=== PATIENT | male | born 1995 | race Caucasian/White ===

== ENCOUNTER 2020-11-25 02:40 | Emergency (ER) | payer OTHER ==
[~2020-11-25] VITALS: Ht 177.8 cm; Wt 75.3 kg
--- NOTE | 2020-11-25 02:40 | NUR ---
JAIME NUNEZ TO CHAIR B
[2020-11-25 03:10] VITALS: BP 121/88
[2020-11-25 03:18] VITALS: BP 121/88
--- NOTE | 2020-11-25 03:18 | NUR ---
PATIENT BIB [place] [employer]. PATIENT EXAMINED BY DR. MCKINNON. PATIENT MEDICALLY CLEARED AND RELEASED IN CUSTODY IN STABLE CONDITION. ORIGINAL PRE-BOOK FORM GIVEN TO OFFICER Yuriy RANGEL [id number]
== END 2020-11-25 03:18 ==
LOC: MED 02:40
DX: Z02.89 Encounter for other administrative examinations (principal)
CPT/HCPCS: 99283